=== PATIENT | female | born 1950 | race Caucasian/White ===

== ENCOUNTER → 2019-01-15 08:09 | Outpatient (BNVA) | payer MEDICARE, SELFPAY | PROVIDERS: PCP Family Medicine; Referring Provider Family Medicine; Visit Provider Nurse Practitioner Gerontology | DX: N39.41 Urge incontinence (principal); I10 Essential (primary) hypertension; E11.9 Type 2 diabetes mellitus without complications; J44.9 Chronic obstructive pulmonary disease, unspecified; Z87.891 Personal history of nicotine dependence | CPT/HCPCS: 51798; 81003; 99204 ==

== ENCOUNTER → 2019-04-26 12:53 | Outpatient (BNVA) | payer MEDICARE, SELFPAY | PROVIDERS: PCP Family Medicine; Referring Provider Family Medicine; Visit Provider Nurse Practitioner Gerontology | DX: N39.41 Urge incontinence (principal) | CPT/HCPCS: 99213 ==

== ENCOUNTER → 2020-04-29 10:28 | Outpatient (BNVA) | payer MEDICARE, SELFPAY | PROVIDERS: PCP Family Medicine; Referring Provider Family Medicine; Visit Provider Nurse Practitioner Gerontology | DX: N39.41 Urge incontinence (principal) | CPT/HCPCS: 81003; 99213 ==

== ENCOUNTER → 2020-05-29 13:50 | Outpatient (BNVA) | payer MEDICARE, SELFPAY | PROVIDERS: PCP Family Medicine; Referring Provider Family Medicine; Visit Provider Nurse Practitioner Gerontology | DX: N39.41 Urge incontinence (principal) | CPT/HCPCS: 99213 ==

== ENCOUNTER → 2020-06-25 09:51 | Outpatient (BNVA) | payer MEDICARE, SELFPAY | PROVIDERS: PCP Family Medicine; Referring Provider Family Medicine; Visit Provider Nurse Practitioner Gerontology | DX: N39.41 Urge incontinence (principal) | CPT/HCPCS: 99214 ==

== ENCOUNTER → 2020-12-30 12:52 | Outpatient (BNVA) | payer MEDICARE, SELFPAY | PROVIDERS: PCP Family Medicine; Referring Provider Family Medicine; Visit Provider Nurse Practitioner Gerontology | DX: N39.41 Urge incontinence (principal); Z79.899 Other long term (current) drug therapy | CPT/HCPCS: 99213 ==

== ENCOUNTER 2021-04-16 02:00 | Outpatient (CLI) | payer MEDICARE, SELFPAY ==
--- NOTE | 2021-04-16 06:45 | DI.CTLCSR_ITS ---
Exam(s) CT CHEST LUNG CANCER SCREEN EXAM: CT CHEST LUNG CANCER SCREEN CLINICAL HISTORY: Screening for lung cancer,FORMER SMOKER, Z87.891. TECHNIQUE: Imaging Protocol: Low Dose Technique CONTRAST MATERIAL: None COMPARISON: No exams were available for comparison FINDINGS: CHEST: LUNGS: There are mild benign-appearing increased markings in the inferior lingular segment of the lef t lung and anterior basal segment of the left lower lobe. No pleural effusion In the opposite-right lung there is focal thickening of the major fissure (series 2/image 69). Mild infiltrate is seen in the medial segment of the right middle lobe. Mild benign-appearing increased m arkings are noted in the medial aspect of the posterior basal segment of the right lower lobe. No pl eural effusion MEDIASTINUM: There is no obvious hilar nor mediastinal adenopathy. CARDIAC: Heart size is normal. There is no pericardial effusion.There is heavy coronary artery calci fication. Caliber of the thoracic aorta is normal. OTHER: Gallbladder is noted to be surgically absent. OSSEOUS: No significant osseous lesions.. IMPRESSION: 1. Benign-appearing bilateral lung findings. No pleural effusions. No obvious intrathoracic adenopa thy 2. Coronary artery calcification noted 3. Lung RADS Cat 2 - Benign Appearance / Behavior: Nodules with a very low likelihood of becoming a c linically active cancer due to size or lack of growth Lung-RADS 1.0 CATEGORIES: Category 0 - Prior chest CT exam(s) being located for comparison. Category 1 - Annual screening in 12 months. No nodules or definitely benign nodules. Category 2 - Annual screening in 12 months. Benign appearance. Nodules with low likelihood of becomin g active cancer. Category 3 - 6-month follow-up. Probably benign. Short-term follow-up suggested. Nodules with low lik elihood of becoming active cancer. Category 4A - 3-month follow-up and CT/PET if >8 mm in size. Suspicious finding. Findings which requi re additional testing. Category 4B - Findings which require additional testing and tissue sampling. Category 4X - Category 3 or 4 nodules with additional features or imaging findings that increases the suspicion of malignancy. Modifier S- Potentially clinically significant findings (non lung cancer) RADIATION DOSE DELIVERED: 70.38mGy.cm Total DLP CTDIvol DATA REPOSITORY: All CT scans at this facility are submitted to the National Radiology Data Registry (NRDR) Dose Index Registry (DIR) with the [employer] (ACR). RADIATION OPTIMIZATION: All CT scans at this facility use at least one of these dose optimization te chniques: automated exposure control; mA and/or kV adjustment per patient size (includes targeted exa ms where dose is matched to clinical indication); or iterative reconstruction.
== END 2021-04-16 02:20 ==
PROVIDERS: PCP Family Medicine; Visit Provider Student in an Organized Health Care Education/Training Program
DX: Z12.2 Encounter for screening for malignant neoplasm of respiratory organs (principal); Z87.891 Personal history of nicotine dependence; R91.8 Other nonspecific abnormal finding of lung field
CPT/HCPCS: 71271

== ENCOUNTER → 2021-11-25 09:25 | Outpatient (BNVA) | payer MEDICARE, SELFPAY | PROVIDERS: PCP Family Medicine; Referring Provider Family Medicine; Visit Provider Nurse Practitioner Gerontology | DX: N39.41 Urge incontinence (principal) | CPT/HCPCS: 51798; 81003; 99214 ==

== ENCOUNTER 2022-05-04 01:18 | Outpatient (CLI) | payer MEDICARE, SELFPAY ==
--- NOTE | 2022-05-04 08:15 | DI.CTLCSR_ITS ---
Exam(s) CT CHEST LUNG CANCER SCREEN EXAM: CT CHEST LUNG CANCER SCREEN CLINICAL HISTORY: Screening for lung cancer,FORMER SMOKER, Z87.891. TECHNIQUE: Imaging Protocol: Low Dose Technique CONTRAST MATERIAL: None COMPARISON: CT CT CHEST LUNG CANCER SCREEN from 04/16/2021 FINDINGS: CHEST: LUNGS: There is a new concerning infiltrate in the right upper lobe which measures approximately 1.2 cm wide by 1.2 cm AP x 1.4 cm craniocaudal and appears somewhat spiculated. Extensive position adjac ent to the azygos vein.. There is some platelike atelectasis in the right middle lobe noted. No new significant left lung findings. No pleural effusions. No significant focal findings in the trachea and mainstem bronchi. MEDIASTINUM: There is no obvious hilar nor mediastinal adenopathy. CARDIAC: Heart size is normal. There is no pericardial effusion.Heavy coronary artery calcification noted. Caliber thoracic aorta is upper normal. OTHER: Include exophytic cyst off the lateral cortex of the left kidney which measures 2.5 cm. OSSEOUS: There is compression fracture at superior endplate level of is probably T12 noted.. IMPRESSION: 1. Compared to the prior CT scan of April 2021 there is now a mildly spiculated infiltrate in the right upper lobe as described above, this measuring approximately 12 by 12 x 14 millimeters and requi res close follow-up to rule out malignancy. 2. Other findings as above. 3. Lung RADS Cat 4X - Findings with additional features which require additional testing and tissue s ampling. Lung-RADS 1.0 CATEGORIES: Category 0 - Prior chest CT exam(s) being located for comparison. Category 1 - Annual screening in 12 months. No nodules or definitely benign nodules. Category 2 - Annual screening in 12 months. Benign appearance. Nodules with low likelihood of becomin g active cancer. Category 3 - 6-month follow-up. Probably benign. Short-term follow-up suggested. Nodules with low lik elihood of becoming active cancer. Category 4A - 3-month follow-up and CT/PET if >8 mm in size. Suspicious finding. Findings which requi re additional testing. Category 4B - Findings which require additional testing and tissue sampling. Category 4X - Category 3 or 4 nodules with additional features or imaging findings that increases the suspicion of malignancy. Modifier S- Potentially clinically significant findings (non lung cancer) RADIATION DOSE DELIVERED: 73.7mGy.cm Total DLP DATA REPOSITORY: All CT scans at this facility are submitted to the National Radiology Data Registry (NRDR) Dose Index Registry (DIR) with the [employer] (ACR). RADIATION OPTIMIZATION: All CT scans at this facility use at least one of these dose optimization te chniques: automated exposure control; mA and/or kV adjustment per patient size (includes targeted exa ms where dose is matched to clinical indication); or iterative reconstruction.
== END 2022-05-04 01:38 ==
LOC: DI 01:18
PROVIDERS: PCP Family Medicine; Visit Provider Student in an Organized Health Care Education/Training Program
DX: Z87.891 Personal history of nicotine dependence (principal); Z12.2 Encounter for screening for malignant neoplasm of respiratory organs; N28.1 Cyst of kidney, acquired; R91.8 Other nonspecific abnormal finding of lung field
CPT/HCPCS: 71271

== ENCOUNTER → 2022-11-15 00:49 | Outpatient (CLI) | payer MEDICARE, SELFPAY ==
--- NOTE | 2022-11-15 09:30 | DI.CT_ITS ---
Exam(s) CT CHEST WO EXAM: CT CHEST WO CLINICAL HISTORY: F/U RUL nodule,?SCAR,R91.1. TECHNIQUE: Multi planar reconstructions were performed. CONTRAST MATERIAL: None COMPARISON: CT CT CHEST LUNG CANCER SCREEN from 05/04/2022 FINDINGS: CHEST: LUNGS: The previously described cyst spiculated infiltrate in the right upper lobe adjacent is unchan ged from 05/04/2022. There are no other significant right lung findings and no pleural effusion. Th ere are no new significant findings in the opposite-left lung. No left pleural effusion. There are no focal findings in the trachea and mainstem bronchi. There is no bronchiectasis. MEDIASTINUM: There is no obvious hilar nor mediastinal adenopathy. Visualized thyroid unremarkable.No obvious axillary adenopathy CARDIAC: Heart size is normal. There is no pericardial effusion.Caliber of the thoracic aorta is wit hin normal limits. VISUALIZED UPPER ABDOMEN:No significant adrenal findings. Partially included benign exophytic cyst s een off the lateral cortex of the left kidney measuring 2.6 x 2.4 cm. Entire kidneys are not include d in the field of view of this chest CT study spleen size normal. Gallbladder noted to be surgically absent. OSSEOUS: No significant osseous lesions.No acute fractures. IMPRESSION: 1. Unchanged appearance of the previously described spiculated infiltrate in the right upper lobe, un changed from CT scan of 05/04/2022. 2. No new additional lung findings and there are no pleural effusions nor intrathoracic adenopathy 3. Continued close follow-up recommended, including repeat CT scan in 6 months, earlier if clinically indicated. RADIATION DOSE DELIVERED: 462.71mGy.cm Total DLP DATA REPOSITORY: All CT scans at this facility are submitted to the National Radiology Data Registry (NRDR) Dose Index Registry (DIR) with the [employer] (ACR). RADIATION OPTIMIZATION: All CT scans at this facility use at least one of these dose optimization te chniques: automated exposure control; mA and/or kV adjustment per patient size (includes targeted exa ms where dose is matched to clinical indication); or iterative reconstruction.
== END ==
PROVIDERS: PCP Family Medicine; Visit Provider Student in an Organized Health Care Education/Training Program
DX: R91.1 Solitary pulmonary nodule (principal)
CPT/HCPCS: 71250

== ENCOUNTER → 2022-12-07 10:11 | Outpatient (BNVA) | payer MEDICARE, SELFPAY | PROVIDERS: PCP Family Medicine; Referring Provider Family Medicine; Visit Provider Physician Assistant Surgical | DX: J43.2 Centrilobular emphysema (principal); Z79.51 Long term (current) use of inhaled steroids; Z79.899 Other long term (current) drug therapy; Z87.891 Personal history of nicotine dependence; R91.1 Solitary pulmonary nodule | CPT/HCPCS: 99214 ==

== ENCOUNTER → 2023-01-04 09:34 | Outpatient (BNVA) | payer MEDICARE, SELFPAY | PROVIDERS: PCP Family Medicine; Referring Provider Family Medicine; Visit Provider Nurse Practitioner Gerontology | DX: N39.41 Urge incontinence (principal) | CPT/HCPCS: 51798; 81003; 99214 ==

== ENCOUNTER → 2023-03-14 09:39 | Outpatient (BNVA) | payer MEDICARE, SELFPAY | PROVIDERS: PCP Family Medicine; Referring Provider Family Medicine; Visit Provider Nurse Practitioner Gerontology | DX: N39.41 Urge incontinence (principal) | CPT/HCPCS: 99443 ==

== ENCOUNTER 2023-05-19 11:18 | Day surgery (SDC) | payer MEDICARE, SELFPAY ==
[2023-05-19 11:21] VITALS: BP 178/80; PULSE 78; RESP 16; TEMP 36.4; O2SAT 95
[2023-05-19] MEDS: Lactated Ringers 1,000 ML 80 ML IV (11:57)
--- NOTE | 2023-05-19 12:28 | W.PM.HP.N ---
Date of service: 05/19/23 Time of Service: 12:28 Assessment and Plan Assessment and plan (1) Urge incontinence of urine: Status: Acute Assessment and plan: We will move ahead with cystoscopy and transurethral injection of Botox into the detrusor muscle. We discussed potential complications including bleeding, infection, continued incontinence and urinary retention. History of Present Illness History of Present Illness Chief Complaint: Urgency Incontinence Narrative: This is a 72-year-old woman who has a history of urinary incontinence. She does not leak when she coughs, laughs or sneezes. She does describe urgency and large volume incontinence when she is unable to get to the restroom in time. She does not have any leakage when she is supine. She has been treated with oral medications such as anticholinergics and beta 3 agonist. She has had no significant improvement of her symptoms. She presents now for an injection of Botox into the detrusor muscle. She is not having any dysuria or gross hematuria at this time. Review of Systems Narrative: No fevers or chills No vision change or dysphasia No diabetes or thyroid COPD with SOB ewspecially when cold weather. 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 Stroke COPD (chronic obstructive pulmonary disease) Father Diabetes Cancer family history kidney cancer. Myocardial infarction Hypertension Brother Cancer family history of lung cancer. COPD (chronic obstructive pulmonary disease) Social History (Updated 10/08/20 @ 08:59 by Viki Silva) Smoking/Tobacco Use Status: Former Tobacco Use Quit Date: 03/07/07 Tobacco: How many years used: 43 Smoking risk assessment performed?: Yes Alcohol Intake: current Alcohol Intake frequency: a few times a week Alcohol type: beer Drug use: Never Substance use type: does not use Housing: house Current gender identity: female Do you feel safe at home: Yes Do you feel safe in your relationship?: Yes Meds Allergies and Home Medications Allergies Allergy/AdvReac Type Severity Reaction Status Date / Time procaine [From Novocain] Allergy syncope Verified 05/19/23 11:46 Home Medications Medication Instructions Recorded Confirmed Type blood sugar diagnostic (Blood #10 ea 12/15/18 12/07/22 History Glucose Test strips) furosemide 20 mg tablet 20 mg PO DAILY 12/15/18 05/19/23 History metoprolol tartrate 50 mg tablet 50 mg PO BID 12/15/18 05/19/23 History nitroglycerin 0.4 mg sublingual 0.4 mg sublingual Q5-15M PRN 12/15/18 05/19/23 History tablet (Nitrostat) simvastatin 40 mg tablet 40 mg PO DAILY 12/15/18 05/19/23 History amlodipine 5 mg tablet 5 mg PO DAILY 04/26/19 05/19/23 History lisinopril 40 mg tablet 40 mg PO DAILY 04/26/19 05/19/23 History omeprazole 40 mg capsule,delayed 40 mg PO DAILY 11/18/20 05/19/23 History release fluticasone fur. 100 mcg-umeclid 1 inh inhalation DAILY #180 ea 05/11/21 05/19/23 Rx 62.5 mcg-vilant 25 mcg inhalat.powder (Trelegy Ellipta) alendronate 70 mg tablet 70 mg PO DIRECTED 06/08/22 05/19/23 History albuterol sulfate 90 mcg/actuation 2 puff inhalation Q6H PRN 12/07/22 05/19/23 Rx aerosol inhaler (Ventolin HFA) shortness of breath or wheezing #8.5 grams metformin 500 mg tablet 500 mg PO DAILY 01/04/23 05/19/23 History oxybutynin chloride 15 mg 15 mg PO DAILY #90 tabs 01/04/23 05/19/23 Rx tablet,extended release 24 hr aspirin 81 mg tablet,delayed 81 mg PO DAILY 02/22/23 05/19/23 History release cholecalciferol (vitamin D3) 1,250 1,250 mcg PO QWEEK 02/22/23 05/19/23 History mcg (50,000 unit) capsule Results Last Vital Signs Temp 36.4 C L 05/19/23 11:21 Pulse 78 05/19/23 11:21 Resp 16 05/19/23 11:21 BP 178/80 H 05/19/23 11:21 Pulse Ox 95 05/19/23 11:21 Time Spent Time spent with Patient: <40 minutes Time was spent: other
--- NOTE | 2023-05-19 12:29 | W.ANESPRE ---
General Info Date of Service Date Performed: 05/19/23 Height: 4 ft 10.5 in Weight: 71.4 kg Body Mass Index (BMI): 32.3 Surgical Procedure: Operation Date: 05/19/23 13:10 Proposed Procedure Side Surgeon p Cystoscopy/Transuretheral Injection of Botox Shadi Og MD Meds Allergies and Home Medications Allergies Allergy/AdvReac Type Severity Reaction Status Date / Time procaine [From Novocain] Allergy syncope Verified 05/19/23 11:46 Home Medication Medication Instructions Recorded blood sugar diagnostic (Blood #10 ea 12/15/18 Glucose Test strips) furosemide 20 mg tablet 20 mg PO DAILY 12/15/18 metoprolol tartrate 50 mg tablet 50 mg PO BID 12/15/18 nitroglycerin 0.4 mg sublingual 0.4 mg sublingual Q5-15M PRN 12/15/18 tablet (Nitrostat) simvastatin 40 mg tablet 40 mg PO DAILY 12/15/18 amlodipine 5 mg tablet 5 mg PO DAILY 04/26/19 lisinopril 40 mg tablet 40 mg PO DAILY 04/26/19 omeprazole 40 mg capsule,delayed 40 mg PO DAILY 11/18/20 release fluticasone fur. 100 mcg-umeclid 1 inh inhalation DAILY #180 ea 05/11/21 62.5 mcg-vilant 25 mcg inhalat.powder (Trelegy Ellipta) alendronate 70 mg tablet 70 mg PO DIRECTED 06/08/22 albuterol sulfate 90 mcg/actuation 2 puff inhalation Q6H PRN 12/07/22 aerosol inhaler (Ventolin HFA) shortness of breath or wheezing #8.5 grams metformin 500 mg tablet 500 mg PO DAILY 01/04/23 oxybutynin chloride 15 mg 15 mg PO DAILY #90 tabs 01/04/23 tablet,extended release 24 hr aspirin 81 mg tablet,delayed 81 mg PO DAILY 02/22/23 release cholecalciferol (vitamin D3) 1,250 1,250 mcg PO QWEEK 02/22/23 mcg (50,000 unit) capsule Current Visit Medications: Current Medications Generic Name Dose Route Start Last Admin Trade Name Freq PRN Reason Stop Dose Admin OnabotulinumtoxinA 100 units/ 0 units 05/19/23 06:00 Sodium Chloride 20 ml IJ 05/19/23 23:59 TODAY AARON Ringer's Solution 1,000 mls @ 80 mls/hr 05/19/23 06:00 05/19/23 11:57 IV 05/19/23 23:59 80 mls/hr INFUSION AARON Administration Cefazolin Sodium/Dextrose 2 gm in 50 mls @ 100 mls/hr 05/19/23 06:00 Ancef Duplex IVPB 05/19/23 23:59 PREOP AARON IV Miscellaneous Supplies 1 each 05/19/23 06:00 Iv Access IV 05/19/23 23:59 DIRECTED AARON Sodium Chloride 0 ml 05/19/23 06:00 Normal Saline Flush 10 Ml Syr IV 05/19/23 23:59 PRN PRN Sodium Chloride 0 ml 05/19/23 06:00 Normal Saline 10 Ml Vial IJ 05/19/23 23:59 DIRECTED PRN Sterile Water 0 ml 05/19/23 06:00 Water,Injection,Sterile 10 Ml Vial IJ 05/19/23 23:59 DIRECTED PRN PFSH Active Problems Active Problems: Problem Status Onset Code Lung nodule R91.1 Personal history of nicotine dependence Z87.891 COPD (chronic obstructive pulmonary disease) J44.9 Urge incontinence of urine N39.41 Medical History Medical History Colonoscopy planned Osteoporosis Focal hyperhidrosis Atopic dermatitis Chronic obstructive lung disease 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 Hypertensive disorder Obesity Hyperlipidemia Type 2 diabetes mellitus Surgical History Surgical History Hx of colonoscopy H/O hernia repair Hx of appendectomy History of tubal ligation S/P cholecystectomy History of esophagogastroduodenoscopy (EGD) H/O cardiac catheterization 2007 Tobacco Smoking/Tobacco Use Status: Former Tobacco Use Alcohol Alcohol Intake: current Alcohol intake frequency: a few times a week Alcohol type: beer Substance Use Substance use: Never Substance use type: does not use Vital Signs and Lab Results Vital Signs Most Recent Vital Signs in EMR: Most Recent Vital Signs Temp Pulse Resp BP Pulse Ox 36.4 C L 78 16 178/80 H 95 05/19/23 11:21 05/19/23 11:21 05/19/23 11:21 05/19/23 11:21 05/19/23 11:21 Point of Care Results Point of Care Results: Finger Stick Blood Glucose 132 05/19/23 11:46 Lab Results Blood Type / Crossmatch: No Data to Display Complete Blood Count: No Data to Display Complete Metabolic Panel: No Data to Display Liver Function Panel: No Data to Display Coagulation Panel: No Data to Display Cardiac Panel: No Data to Display Arterial Blood Gas: No Data to Display Venous Blood Gas: No Data to Display Pancreas Panel: No Data to Display Thyroid Panel: No Data to Display Infectious Disease: No Data to Display Blood Cultures: No Data to Display Toxicology Panel: No Data to Display Anesthesia Assessment and Plan Anesthesia History Personal History: No History of Anesthesia Complications Family History: No Family History of Anesthesia Complications Exercise Tolerance Exercise Tolerance: Metabolic Equivalents>4 Pertinent Negatives Pertinent Negatives: No Symptoms of GERD Cardiac & Pulmonary Exam Cardiac Exam: Normal S1/S2 Heart Sounds Pulmonary Exam: Clear Bilateral Breath Sounds Implantable Cardiac Device Does patient have a Pacemaker or an ICD?: No Airway Exam Known Difficult Airway: No Mallampati Class: 3 Mouth Opening: Normal (> 3cm) Thyromental Distance: Greater than 3 cm Neck Range of Motion: Full ROM Neck Circumference: Normal Teeth Condition: Removable Dentures/Plates Upper ASA Classification ASA Score: ASA 3 Emergency Case?: No NPO Status NPO Status: NPO Clears >2 hours, Solids >8 hours Anesthesia Plan Resuscitation Status: Full Code Anesthesia Technique: General Anesthesia Airway Planned: Natural Airway Monitors Used: Standard Monitors
[2023-05-19 12:31] VITALS: BMI 32.3
[2023-05-19] MEDS: ceFAZolin 2 GM/50 ML BAG IVPB (13:04)
[2023-05-19] MEDS: Lidocaine 2% Jelly 6 ML SYR (13:25)
[2023-05-19] MEDS: BOTULINUM TOXIN TYPE A 100 UNITS, Normal Saline 20 ML IJ (13:26)
--- NOTE | 2023-05-19 13:30 | W.PM.DSUDISC ---
Date of service: 05/19/23 Time of Service: 13:30 Discharge Plan Disposition Patient Disposition: Home Condition: Stable Discharge Details Reason For Visit: cystoscopy with Botox injection Attending Provider: Shadi Og Primary Care Provider: KENNEDI DE LEON Home Meds and New Rx's Prescriptions: No Action aspirin 81 mg tablet,delayed release (DR/EC) 81 mg PO DAILY cholecalciferol (vitamin D3) 1,250 mcg (50,000 unit) capsule 1,250 mcg PO QWEEK lisinopril 40 mg tablet 40 mg PO DAILY amlodipine 5 mg tablet 5 mg PO DAILY alendronate 70 mg Tablet 70 mg PO DIRECTED albuterol sulfate [Ventolin HFA] 90 mcg/actuation HFA aerosol inhaler 2 puff IH Q6H PRN (Reason: shortness of breath or wheezing) Qty: 8.5 8RF metformin 500 mg tablet 500 mg PO DAILY oxybutynin chloride 15 mg tablet extended release 24hr 15 mg PO DAILY Qty: 90 0RF (DME) Blood Glucose Test Strip See Rx Instructions .ROUTE .MEDSUPPLY Qty: 10 Rx Instructions: As directed furosemide 20 mg tablet 20 mg PO DAILY metoprolol tartrate 50 mg tablet 50 mg PO BID nitroglycerin [Nitrostat] 0.4 mg tablet, sublingual 0.4 mg SL Q5-15M PRN simvastatin 40 mg tablet 40 mg PO DAILY omeprazole 40 mg capsule,delayed release(DR/EC) 40 mg PO DAILY Patient Comments: Uses 20mg daily but can increase to 40mg for 7 days if needed, per pt Trelegy Ellipta 100-62.5-25 mcg blister with device 1 inh inhalation DAILY Qty: 180 3RF Discharge Instructions Additional Instructions: call 1 week with progress report already has followup appt in our office in June, so no new appt needs to be scheduled Activity:: Activity as Tolerated Shower/Bathe:: 24 hours Diet:: As Tolerated Discharge Orders Discharge Orders: Discharge Order (Routine); Ordered 05/19/23 Ordered By: Shadi Og DS: Diagnosis Discharge Diagnosis (1) Urge incontinence of urine: Status: Acute
--- NOTE | 2023-05-19 13:36 | ROE_ITS ---
Date of service: 05/19/23 Time of Service: 13:36 Operative Note Operative Note DATE OF PROCEDURE: 05/19/23 PRE-OP DIAGNOSIS: Urgency Incontinence due to overactive bladder POST-OP DIAGNOSIS: same PROCEDURE: cystoscopy with transurethral injection of Botox SURGEON: Shadi Og ANESTHESIA TYPE: Local By Surgeon and General:No Airway Refer to Anesthesia Record ESTIMATED BLOOD LOSS: 5 PATHOLOGY: none sent COMPLICATIONS: None Patient was transported to: same day Patient's condition: stable Implants: 100 Units Botox Indications: This is a 72-year-old woman who has a history of a previous bladder neck suspension. She is currently having issues with urinary urgency incontinence. She has failed behavioral modification and medical management with anticholinergics and beta 3 agonists. She presents now for an injection of Botox into the detrusor muscle Findings: no bladder tumor Procedure Description: The patient was brought to the operating room on 05/19/2023. She was given preoperative IV antibiotics. After successful induction of general anesthesia without intubation, she was placed in the dorsal lithotomy position. Her genitalia was prepped and draped. 2% Xylocaine jelly was instilled into the urethra. A 20 [place] urethrotome sheath was passed through the urethra into the bladder. The bladder was inspected with a 15 degree lens. Both ureteral orifices appeared normal with no blood coming from either side. No papillary or nodular lesions were seen. The bladder was smooth-walled. Using a transurethral injection system, we injected a total of 100 units of Botox into the detrusor muscle. We diluted the Botox and 20 mL of dilute and injected 1 mL of solution in 20 different locations. We used a grid pattern with 4 horizontal rolls and 5 vertical rows. We avoided the trigone and orifices. The bladder was then emptied and the cystoscope was removed. The patient tolerated the procedure well with no complications. At
[2023-05-19 13:40] VITALS: BP 96/76; PULSE 80; RESP 14; TEMP 35.6; O2SAT 92
[2023-05-19] MEDS: Phenazopyridine 200 MG TAB PO (13:55)
--- NOTE | 2023-05-19 14:07 | W.ANESPOSTOP ---
Postoperative Evaluation Date, Time and Location Date Performed: 05/19/23 Time Performed: 14:07 Patient Location: Day Surgery Unit Vital Signs Most Recent Imported Vital Signs: Most Recent Vital Signs Temp Pulse Resp BP Pulse Ox 35.6 C L 80 14 96/76 L 92 05/19/23 13:40 05/19/23 13:40 05/19/23 13:40 05/19/23 13:40 05/19/23 13:40 Pain Score Most Recent Pain Score: Most Recent Pain Score Pain Level 0 05/19/23 13:40 Assessment Mental Status: Awake (Alert & Oriented to Patient Baseline) Airway and Respiratory Function: Patent airway with normal (patient baseline) respiratory exam Cardiovascular Function: Hemodynamically Stable Hydration Status: Adequately Hydrated Nausea & Vomiting: No Nausea or Vomiting Pain: Pt. Denies Any Pain Peripheral Nerve Block: Patient did not receive a nerve block
[2023-05-19 14:15] VITALS: BP 130/80; PULSE 72; RESP 14; TEMP 36.2; O2SAT 95
== END 2023-05-19 14:40 | disposition home or self-care (01) ==
PROVIDERS: PCP Family Medicine; Visit Provider Urology
PROC: (CPT 52287; principal; 2023-05-19 13:00)
DX: N32.81 Overactive bladder (principal); N39.41 Urge incontinence; E66.9 Obesity, unspecified; E11.9 Type 2 diabetes mellitus without complications; I10 Essential (primary) hypertension
CPT/HCPCS: 52287; J0585; J0690; J2001; J2704; J3010

== ENCOUNTER → 2023-06-20 09:09 | Outpatient (BNVA) | payer MEDICARE, SELFPAY | PROVIDERS: PCP Family Medicine; Referring Provider Family Medicine; Visit Provider Student in an Organized Health Care Education/Training Program | DX: J43.2 Centrilobular emphysema (principal); R91.1 Solitary pulmonary nodule; Z87.891 Personal history of nicotine dependence | CPT/HCPCS: 99214 ==

== ENCOUNTER → 2023-07-05 09:44 | Outpatient (BNVA) | payer MEDICARE, SELFPAY | PROVIDERS: PCP Family Medicine; Visit Provider Nurse Practitioner Gerontology | DX: N39.41 Urge incontinence (principal) | CPT/HCPCS: 51798; 99214 ==

== ENCOUNTER → 2023-09-22 08:24 | Outpatient (BNVA) | payer MEDICARE, SELFPAY | PROVIDERS: PCP Family Medicine; Referring Provider Family Medicine; Visit Provider Nurse Practitioner Gerontology | DX: N39.41 Urge incontinence (principal); R30.0 Dysuria | CPT/HCPCS: 81003; 99213 ==

== ENCOUNTER 2023-09-22 08:29 | Outpatient (REF) | payer MEDICARE, SELFPAY | END 2023-09-22 08:30 | disposition home or self-care (01) | LOC: LBN 08:29 | PROVIDERS: PCP Family Medicine; Visit Provider Nurse Practitioner Gerontology | DX: R30.0 Dysuria (principal); N39.41 Urge incontinence | CPT/HCPCS: 87077; 87086; 87186 ==

== ENCOUNTER 2023-12-06 01:30 | Outpatient (CLI) | payer MEDICARE, SELFPAY ==
--- NOTE | 2023-12-06 06:45 | DI.CT_ITS ---
Exam(s) CT CHEST WO EXAM: CT CHEST WO CLINICAL HISTORY: assess nodule stability,R91.1 TECHNIQUE: Imaging Protocol: Axial computed tomography images with coronal and sagittal reformatted images were created and reviewed CONTRAST MATERIAL: Intravenous: Omnipaque 350 Contrast volume:structured data ml. COMPARISON: CT CT CHEST LUNG CANCER SCREEN from 04/16/[address] CHEST LUNG CANCER SCREEN from 05/04/[address] CHEST WO from 11/15/2022 FINDINGS: Exam is mildly limited by respiratory motion at the lung bases. Pulmonary parenchyma: No consolidation. There has been no change in the appearance of the somewhat t riangular linear density at the right upper lobe. It has the appearance of scarring. Mild upper lob e emphysematous and fibrotic changes. Tracheobronchial tree: No bronchiectasis or mucous plugging. Mediastinum and Opal: No dominant adenopathy or fluid collection. Pleura: No effusion. No pneumothorax. Heart: The heart is not dilated. Severe coronary artery calcifications are seen. Aorta: Thoracic aorta non-dilated. Severe atherosclerotic changes. Pulmonary arteries: Normal diameter. Upper abdomen: No acute findings. Bones: Mild is degenerative changes in the spine. Soft tissues: Unremarkable. IMPRESSION: Stable appearance of area of linear density in the right upper lobe which has appearance of scarring. No new abnormalities. Low-dose screening chest CT recommended in 1 year. RADIATION DOSE DELIVERED: 224.37mGy.cm Total DLP DATA REPOSITORY: All CT scans at this facility are submitted to the National Radiology Data Registry (NRDR) Dose Index Registry (DIR) with the [employer] ([employer]). RADIATION OPTIMIZATION: All CT scans at this facility use at least one of these dose optimization te chniques: automated exposure control; mA and/or kV adjustment per patient size (includes targeted exa ms where dose is matched to clinical indication); or iterative reconstruction.
== END 2023-12-06 01:50 ==
LOC: DI 01:31
PROVIDERS: PCP Family Medicine; Visit Provider Student in an Organized Health Care Education/Training Program
DX: R91.1 Solitary pulmonary nodule (principal)
CPT/HCPCS: 71250

== ENCOUNTER → 2023-12-19 10:52 | Outpatient (BNVA) | payer MEDICARE, SELFPAY | PROVIDERS: PCP Family Medicine; Referring Provider Family Medicine; Visit Provider Physician Assistant Surgical | DX: J43.2 Centrilobular emphysema (principal); R91.1 Solitary pulmonary nodule; Z87.891 Personal history of nicotine dependence | CPT/HCPCS: 99214 ==

== ENCOUNTER → 2024-01-03 09:52 | Outpatient (BNVA) | payer MEDICARE, SELFPAY | PROVIDERS: PCP Family Medicine; Referring Provider Family Medicine; Visit Provider Nurse Practitioner Gerontology | DX: N39.41 Urge incontinence (principal) | CPT/HCPCS: 51798; 81003; 99214 ==

== ENCOUNTER → 2024-04-04 08:51 | Outpatient (BNVA) | payer MEDICARE, SELFPAY | PROVIDERS: PCP Family Medicine; Referring Provider Family Medicine; Visit Provider Nurse Practitioner Gerontology | DX: N39.41 Urge incontinence (principal) | CPT/HCPCS: 51798; 99214 ==

== ENCOUNTER → 2024-07-04 10:30 | Outpatient (BNVA) | payer MEDICARE, SELFPAY | PROVIDERS: PCP Family Medicine; Referring Provider Family Medicine; Visit Provider Physician Assistant Surgical | DX: J43.2 Centrilobular emphysema (principal); Z87.891 Personal history of nicotine dependence; R91.1 Solitary pulmonary nodule; J96.11 Chronic respiratory failure with hypoxia | CPT/HCPCS: 94618; 99214 ==

== ENCOUNTER → 2024-10-03 09:54 | Outpatient (BNVA) | payer MEDICARE, SELFPAY | PROVIDERS: PCP Family Medicine; Referring Provider Family Medicine; Visit Provider Internal Medicine Pulmonary Disease | DX: J44.9 Chronic obstructive pulmonary disease, unspecified (principal); J43.2 Centrilobular emphysema; R91.1 Solitary pulmonary nodule; N39.41 Urge incontinence; R39.9 Unspecified symptoms and signs involving the genitourinary system; Z87.891 Personal history of nicotine dependence | CPT/HCPCS: 99215; 94618; 99214; 51798; 36415 ==

== ENCOUNTER 2024-10-03 11:54 | Outpatient (REF) | payer MEDICARE, SELFPAY ==
[2024-10-03 11:17] LABS: HCT 43.4 % (36.0-46.0); HGB 15.0 g/dL (11.2-15.7); MCH 30.2 pg (27.0-33.0); MCHC 34.6 % (32.0-36.0); MCV 87 fL (80-95); MPV 10.3 fL (8.0-11.0); Platelet Count 239 10^3/uL (130-400); RBC 4.97 10^6/uL (3.93-5.22); RDW 12.1 % (11.7-14.6); RDW-SD 39.0 fL; WBC 8.93 10^3/uL (4.4-10.8)
== END 2024-10-03 11:55 | disposition home or self-care (01) ==
LOC: LBN 11:54
PROVIDERS: PCP Family Medicine; Visit Provider Internal Medicine Pulmonary Disease
DX: J43.2 Centrilobular emphysema (principal); J44.9 Chronic obstructive pulmonary disease, unspecified
CPT/HCPCS: 85027; 82785

== ENCOUNTER 2024-10-12 01:17 | Outpatient (CLI) | payer MEDICARE, SELFPAY | END 2024-10-12 01:18 | disposition home or self-care (01) | LOC: RT 01:22 | PROVIDERS: PCP Family Medicine; Visit Provider Internal Medicine Pulmonary Disease | DX: J43.2 Centrilobular emphysema (principal) | CPT/HCPCS: 94762 ==

== ENCOUNTER 2024-11-01 09:15 | Outpatient (CLI) | payer MEDICARE, SELFPAY | END 2024-11-01 09:16 | disposition home or self-care (01) | PROVIDERS: PCP Family Medicine; Visit Provider Internal Medicine Pulmonary Disease | DX: J43.2 Centrilobular emphysema (principal) | CPT/HCPCS: 94762 ==

== ENCOUNTER 2024-12-17 02:19 | Outpatient (CLI) | payer MEDICARE, SELFPAY ==
--- NOTE | 2024-12-17 06:30 | DI.CT_ITS ---
Exam(s) CT CHEST WO EXAM: CT CHEST WO CLINICAL HISTORY: Pulmonary nodule re-evaluation,COPD,R91.1. TECHNIQUE: Imaging protocol: Axial computed tomography images were obtained and coronal and sagittal reformatted images were created and reviewed. Computer aided detection (CAD) was utilized. CONTRAST MATERIAL: Noncontrast COMPARISON: CT CT CHEST WO from 11/15/[address] CHEST WO from 12/06/2023 FINDINGS: Pulmonary parenchyma: No consolidation. Stable area of scarring in the right upper lobe. New nodule measuring 8 x 5 by 5 millimeters the lateral right upper lobe. Interstitial changes: Mild. Emphysema: Moderate, greater in the upper lobes. Tracheobronchial tree: No mucous plugging. No bronchiectasis . Pleura: No effusion or pneumothorax. Heart: The heart is not dilated. The coronary arteries show severe calcifications. Aorta: Thoracic aorta non-dilated. Moderate to severe atherosclerotic changes. Lymph nodes: No enlarged lymph nodes. Bones: Degenerative changes are seen. No evidence of compression fracture. Upper abdomen: Unremarkable. Soft tissues: Unremarkable surgical clips in the right breast. IMPRESSION: New 5 x 5 millimeter nodule in the right upper lobe. Three-month follow-up exam recommended. Stable area of right upper lobe scarring. Unexpected findings RADIATION DOSE DELIVERED: 226.22mGy.cm Total DLP 226.22mGy.cm Total DLP DATA REPOSITORY: All CT scans at this facility are submitted to the National Radiology Data Registry (NRDR) Dose Index Registry (DIR) with the [employer] ([employer]). RADIATION OPTIMIZATION: All CT scans at this facility use at least one of these dose optimization techniques: automated exposure control; mA and/or kV adjustment per patient size (includes targeted exams where dose is matched to clinical indication); or iterative reconstruction.
== END 2024-12-17 02:39 ==
LOC: DI 02:19
PROVIDERS: PCP Neuromusculoskeletal Medicine & OMM; Visit Provider Internal Medicine Pulmonary Disease
DX: R91.1 Solitary pulmonary nodule (principal); J43.2 Centrilobular emphysema
CPT/HCPCS: 71250

== ENCOUNTER → 2024-12-31 10:55 | Outpatient (BNVA) | payer MEDICARE, SELFPAY | PROVIDERS: PCP Neuromusculoskeletal Medicine & OMM; Referring Provider Family Medicine; Visit Provider Internal Medicine Pulmonary Disease | DX: J44.9 Chronic obstructive pulmonary disease, unspecified (principal); J43.2 Centrilobular emphysema; J96.11 Chronic respiratory failure with hypoxia; R91.1 Solitary pulmonary nodule; Z87.891 Personal history of nicotine dependence; Z29.11 Encounter for prophylactic immunotherapy for respiratory syncytial virus (RSV) | CPT/HCPCS: 99214; 90471; 90679; 36415 ==

== ENCOUNTER 2024-12-31 13:11 | Outpatient (REF) | payer MEDICARE, SELFPAY ==
[2024-12-31 13:57] LABS: Abs Immature Grans 0.10 10^3/uL (0.0-0.06); HCT 45.1 % (36.0-46.0); HGB 15.4 g/dL (11.2-15.7); Immature Grans % 0.9 %; MCH 29.8 pg (27.0-33.0); MCHC 34.1 % (32.0-36.0); MCV 87 fL (80-95); MPV 10.7 fL (8.0-11.0); Platelet Count 275 10^3/uL (130-400); RBC 5.17 10^6/uL (3.93-5.22); RDW 12.3 % (11.7-14.6); RDW-SD 39.3 fL; WBC 11.09 10^3/uL (4.4-10.8)
== END 2024-12-31 13:12 | disposition home or self-care (01) ==
LOC: LBN 13:11
PROVIDERS: PCP Neuromusculoskeletal Medicine & OMM; Visit Provider Internal Medicine Pulmonary Disease
DX: J44.9 Chronic obstructive pulmonary disease, unspecified (principal)
CPT/HCPCS: 85025